=== PATIENT | male | born 1960 | race Caucasian/White ===

== ENCOUNTER 2017-05-16 07:25 | Emergency (ER) | payer SELFPAY ==
[2017-05-16 07:30] VITALS: BP 106/86; PULSE 122; RESP 20; TEMP 98.1; O2SAT 93
--- NOTE | 2017-05-16 07:33 | EDPHY ---
H & P Stated Complaint: skin lesion r scalp Time Seen by Provider: 05/16/17 07:33 HPI/ROS: CHIEF COMPLAINT: Concerned about lesion on scalp HISTORY OF PRESENT ILLNESS: The patient presents the ED concerned about a excoriated lesion on his right scalp. The patient reportedly use topical over- the-counter antifungal cream without improvement of his symptoms. The patient denies additional cutaneous complaints. The patient has no significant past medical history. He does not have a primary care provider. The patient denies any complaints of headache or fever. REVIEW OF SYSTEMS: A comprehensive 10 point review of systems is otherwise negative aside from elements mentioned in the history of present illness. Source: Patient - Personal History Current Tetanus/Diphtheria Vaccine: Yes - Medical/Surgical History Hx Asthma: No Hx Chronic Respiratory Disease: No Hx Diabetes: No Hx Cardiac Disease: No Hx Renal Disease: No Hx Cirrhosis: No Hx Alcoholism: No Hx HIV/AIDS: No Hx Splenectomy or Spleen Trauma: No Other PMH: denies - Social History Smoking Status: Current every day smoker - Physical Exam Exam: General Appearance: Slightly disheveled male, no acute distress Eyes: Pupils equal and round no pallor or injection ENT, Mouth: Poor dentition Respiratory: There are no retractions, lungs are clear to auscultation Cardiovascular: Regular rate and rhythm Gastrointestinal: Abdomen is soft and nontender, no masses, bowel sounds normal Neurological: A&O, normal motor function, normal sensory exam, normal cranial nerves Skin: Very small area of hyperkeratosis noted to the scalp. No abscess or cellulitis Musculoskeletal: Neck is supple nontender Extremities: symmetrical, full range of motion Constitutional: Initial Vital Signs Temperature (C) 36.7 C 05/16/17 07:27 Heart Rate 122 H 05/16/17 07:27 Respiratory Rate 20 05/16/17 07:27 Blood Pressure 106/86 H 05/16/17 07:27 O2 Sat (%) 93 05/16/17 07:27 O2 Delivery Mode Room Air Allergies/Adverse Reactions: No Known Allergies Allergy (Unverified 05/16/17 07:27) Home Medications: Medication Instructions Recorded NK [No Known Home Meds] 05/16/17 Medical Decision Making ED Course/Re-evaluation: The patient has no evidence of a serious cutaneous infection or emergency at this point time. I have tried to reassure the patient. I do think it would be ball if he established primary care. [facility] No further workup is indicated at this point time based upon his presentation and physical exam findings. Departure - Departure Disposition: Home, Routine, Self-Care Clinical Impression: Rash and nonspecific skin eruption Condition: Good Instructions: Acute Rash (ED) Additional Instructions: 1. Please schedule a follow-up appointment with the primary care clinic you have been referred to for further evaluation your perceived rash. Referrals: [facility],. [Clinic] - As per Instructions
== END 2017-05-16 07:47 | disposition home or self-care (01) ==
DX: R21 Rash and other nonspecific skin eruption (principal); F17.200 Nicotine dependence, unspecified, uncomplicated